=== PATIENT | female | born 1965 | race Two or more races ===

== ENCOUNTER 2016-11-17 12:49 | Emergency (ER) | payer BC ==
[2016-11-17 12:56] VITALS: BP 121/77; BMI 23.0
--- NOTE | 2016-11-17 14:23 | DR.GENAD ---
HPI - PCP Primary Care Physician: [email or web address] - Complaint/Symptoms Chief Complaint:: patient stated she has been battling a cough for over a month and has been short of breath for the past couple of days and her nose is stuffed up. - Source History Provided: Patient - Mode of Arrival Mode of Arrival: Ambulatory - Timing Onset of Chief Complaint: 10/23/16 PMH - PMH Past Medical History: No Past Surgical History: Yes Surgical History: Hysterectomy - Family History History of Family Medical Conditions: No - Social History Does patient currently use any type of tobacco product: No Have you used tobacco products in the last 12 months: No Type of Tobacco Use: None Does any household member use tobacco: Yes Alcohol Use: None Do you use any recreational Drugs:: No Lives With: Family Lives Where: Home - infectious screening In the last 2 months have you had wt loss of >10#?: NO Have you had fever, night sweats or hemotysis?: No Have you traveled outside the country in the last 6 months?: No Isolation: Standard ROS - Review of Systems Constitutional: No Symptoms Reported Eyes: No Symptoms Reported ENTM: No Symptoms Reported Respiratoy: No Symptoms Reported Cardiovascular: No Symptoms Reported Gastrointestinal/Abdominal: No Symptoms Reported Genitourinary: No Symptoms Reported Neurological: No Symptoms Reported Musculoskeletal: No Symptoms Reported Integumentary: No Symptoms Reported Hematologic/Lymphatic: No Symptoms Reported Endocrine: No Symptoms Reported Psychiatric: No Symptoms Reported All Other Systems: Reviewed and Negative PE - Vital Signs Vitals: Temperature 98.3 F Pulse Rate 80 Respiratory Rate 16 Blood Pressure 121/77 O2 Sat by Pulse Oximetry 99 - General General Appearance: Alert, In No Apparent Distress - Head Head Exam: Normal Inspection, Atraumatic - Eyes Eye exam: Normal Appearance, PERRL - ENT ENT Exam: Normal Exam External Ear Exam: Normal External Inspection TM/Canal Exam: Bilateral Normal Nose Exam: Normal Nose Exam Mouth Exam: Normal Inspection Throat Exam: Normal Inspection - Neck Neck Exam: Normal Inspection - Chest Chest Inspection: Normal Inspection, Symmetric Chest Wall Rise - Respiratory Respiratory Exam: Normal Lung Sounds Bilat Respiratory Exam: Bilateral Clear to Auscultation - Cardiovascular Cardiovascular Exam: Regular Rate, Normal Rhythm - Abdominal Exam Abdominal Exam: Normal Inspection Abdominal Tenderness: negative: RUQ, RLQ, LUQ, LLQ, Epigastrium, Suprapubic, Diffuse, Mild, Moderate, Severe, Other - Neurologic Neurological Exam: Alert, Oriented X3, CN II-XII Intact - Skin Skin Exam: Warm, Dry, Intact ROR - Labs Reviewed Result Diagrams: 11/17/16 15:08 11/17/16 15:08 Laboratory: WBC 5.8 X10^3/uL (3.6-10.0) 11/17/16 15:08 RBC 4.98 X10^6/uL (3.5-5.4) 11/17/16 15:08 Hgb 14.3 g/dL (12.0-16.0) 11/17/16 15:08 Hct 41.8 % (36.0-47.0) 11/17/16 15:08 MCV 83.9 fL (80.0-100.0) 11/17/16 15:08 MCH 28.7 pg (27.0-34.0) 11/17/16 15:08 MCHC 34.2 g/dL (33.0-35.0) 11/17/16 15:08 RDW 13.3 % (11.6-16.5) 11/17/16 15:08 Plt Count 275 X10^3/uL (150.0-450.0) 11/17/16 15:08 MPV 7.0 fL (7.4-11.0) L 11/17/16 15:08 Neut % 59.9 % (42.0-75.0) 11/17/16 15:08 Lymph % 30.6 % (21.0-51.0) 11/17/16 15:08 [place] % 7.2 % (0.0-13.0) 11/17/16 15:08 Eos % 1.1 % (0.9-2.9) 11/17/16 15:08 Baso % 1.2 % (0.2-1.0) H 11/17/16 15:08 Neut # 3.5 x10^3/uL (2.2-4.8) 11/17/16 15:08 Lymph # 1.8 X10^3/uL (1.3-2.9) 11/17/16 15:08 [place] # 0.4 x10^3/uL (0.3-0.8) 11/17/16 15:08 Eos # 0.1 x10^3/uL (0.0-0.2) 11/17/16 15:08 Baso # 0.1 X10^3/uL (0.0-0.1) 11/17/16 15:08 Absolute Nucleated RBC 0.0 /100WBC 11/17/16 15:08 Sodium 141 mmol/L (136-145) 11/17/16 15:08 Corrected Sodium TNP 11/17/16 15:08 Potassium 4.0 mmol/L (3.5-5.1) 11/17/16 15:08 Chloride 105 mmol/L (98-107) 11/17/16 15:08 Carbon Dioxide 30.7 mmol/L (21-32) 11/17/16 15:08 BUN 12 mg/dL (7-18) 11/17/16 15:08 Creatinine 0.59 mg/dL (0.55-1.02) 11/17/16 15:08 Est GFR (MDRD) Af Amer > 60 (>60) 11/17/16 15:08 Est GFR (MDRD) Non-Af > 60 (>60) 11/17/16 15:08 Glucose 91 mg/dL (65-99) 11/17/16 15:08 Calcium 9.0 mg/dL (8.5-10.1) 11/17/16 15:08 Corrected Calcium TNP 11/17/16 15:08 Total Bilirubin 1.00 mg/dL (0.2-1.0) 11/17/16 15:08 AST 19 Units/L (15-37) 11/17/16 15:08 ALT 27 Units/L (12-78) 11/17/16 15:08 Alkaline Phosphatase 55 Units/L (46-116) 11/17/16 15:08 C-Reactive Protein 1.70 mg/L (0-3.0) 11/17/16 15:08 Total Protein 8.2 g/dL (6.4-8.2) 11/17/16 15:08 Albumin 3.7 g/dL (3.4-5.0) 11/17/16 15:08 Globulin 4.5 g/dL (2.5-4.5) 11/17/16 15:08 Albumin/Globulin Ratio 0.8 Ratio (1.1-2.1) L 11/17/16 15:08 - XRAY XRAY Interpreted by: Radiologist (Chest : no acute cardiopulmonary disease) - Diagnosis Discharge Problem: Cough variant asthma - Discharge Plan Condition: Stable - Follow ups/Referrals Follow ups/Referrals: DONNA HILLMAN III [Primary Care Provider] - 3 days - Instructions
[2016-11-17 15:23] LABS: BASOPHILS # (AUTO) 0.1 X10^3/uL (0.0-0.1); BASOPHILS % (AUTO) 1.2 % (0.2-1.0); EOSINOPHILS # (AUTO) 0.1 x10^3/uL (0.0-0.2); EOSINOPHILS % (AUTO) 1.1 % (0.9-2.9); HEMATOCRIT 41.8 % (36.0-47.0); HEMOGLOBIN 14.3 g/dL (12.0-16.0); LYMPHOCYTES # (AUTO) 1.8 X10^3/uL (1.3-2.9); LYMPHOCYTES % (AUTO) 30.6 % (21.0-51.0); MEAN CORPUSCULAR HEMOGLOBIN 28.7 pg (27.0-34.0); MEAN CORPUSCULAR HGB CONC 34.2 g/dL (33.0-35.0); MEAN CORPUSCULAR VOLUME 83.9 fL (80.0-100.0); MONOCYTES # (AUTO) 0.4 x10^3/uL (0.3-0.8); MONOCYTES % (AUTO) 7.2 % (0.0-13.0); NEUTROPHILS # (AUTO) 3.5 x10^3/uL (2.2-4.8); NEUTROPHILS % (AUTO) 59.9 % (42.0-75.0); PLATELET COUNT 275 X10^3/uL (150.0-450.0); RED BLOOD COUNT 4.98 X10^6/uL (3.5-5.4); RED CELL DISTRIBUTION WIDTH 13.3 % (11.6-16.5); WHITE BLOOD COUNT 5.8 X10^3/uL (3.6-10.0)
[2016-11-17 15:33] LABS: ALANINE AMINOTRANSFERASE 27 Units/L (12-78); ALBUMIN 3.7 g/dL (3.4-5.0); ALKALINE PHOSPHATASE 55 Units/L (46-116); ASPARTATE AMINO TRANSFERASE 19 Units/L (15-37); BLOOD UREA NITROGEN 12 mg/dL (7-18); CARBON DIOXIDE 30.7 mmol/L (21-32); CHLORIDE 105 mmol/L (98-107); CREATININE 0.59 mg/dL (0.55-1.02); GLUCOSE 91 mg/dL (65-99); SODIUM 141 mmol/L (136-145); TOTAL PROTEIN 8.2 g/dL (6.4-8.2); eGFR BLACK RACES > 60 (>60); eGFR NON BLACK RACES > 60 (>60)
--- NOTE | 2016-11-17 15:42 | RAD ---
HISTORY: Cough Study: Two view chest Comparison: None Findings: The lungs are clear without consolidation, effusion or pneumothorax. The cardiac and mediastinal co ntours are within normal limits. The soft tissues are unremarkable. IMPRESSION: 1. No acute cardiopulmonary abnormality. Reported By:
== END 2016-11-17 16:16 | disposition home or self-care (01) ==
LOC: ER 12:49
DX: J45.991 Cough variant asthma (principal)
CPT/HCPCS: 36415; 71020; 80053; 85025; 86140; 99282

== ENCOUNTER 2017-03-01 09:43 | Emergency (ER) | payer BC ==
[2017-03-01 09:47] VITALS: BP 137/81; BMI 23.8
--- NOTE | 2017-03-01 10:14 | DR.GENAD ---
HPI - PCP Primary Care Physician: [email or web address] - Complaint/Symptoms Chief Complaint Doctors Comments: Patient states that on last night when she turned her head to one side suddenly she became dizzy. She also complaines of weakness of two days duration. Chief Complaint:: patient stated she started getting dizzy last night. - Source History Provided: Patient - Mode of Arrival Mode of Arrival: Ambulatory - Timing Onset of Chief Complaint: 02/28/17 PMH - PMH Past Medical History: Yes Past Medical History: Dyslipidemia Past Surgical History: Yes Surgical History: Hysterectomy - Family History History of Family Medical Conditions: No - Social History Does patient currently use any type of tobacco product: No Have you used tobacco products in the last 12 months: No Type of Tobacco Use: None Does any household member use tobacco: Yes Alcohol Use: None Do you use any recreational Drugs:: No Lives With: Family Lives Where: Home - infectious screening In the last 2 months have you had wt loss of >10#?: NO Have you had fever, night sweats or hemotysis?: No Have you traveled outside the country in the last 6 months?: No Isolation: Standard ROS - Review of Systems Constitutional: Weakness Eyes: No Symptoms Reported ENTM: No Symptoms Reported Respiratoy: No Symptoms Reported Cardiovascular: No Symptoms Reported Gastrointestinal/Abdominal: No Symptoms Reported Genitourinary: No Symptoms Reported Neurological: No Symptoms Reported Musculoskeletal: No Symptoms Reported Integumentary: No Symptoms Reported Hematologic/Lymphatic: No Symptoms Reported Endocrine: No Symptoms Reported Psychiatric: No Symptoms Reported All Other Systems: Reviewed and Negative PE - Vital Signs Vitals: Temperature 97.8 F Pulse Rate 64 Respiratory Rate 16 Blood Pressure 137/81 O2 Sat by Pulse Oximetry 100 - General Limitations: No Limitations General Appearance: Alert, In No Apparent Distress - Head Head Exam: Normal Inspection, Atraumatic - Eyes Eye exam: Normal Appearance, PERRL, EOMI - ENT ENT Exam: Normal Exam External Ear Exam: Normal External Inspection TM/Canal Exam: Bilateral Normal Nose Exam: Normal Nose Exam Mouth Exam: Normal Inspection Throat Exam: Normal Inspection - Neck Neck Exam: Normal Inspection, Full ROM - Chest Chest Inspection: Normal Inspection - Respiratory Respiratory Exam: Normal Lung Sounds Bilat Respiratory Exam: Bilateral Clear to Auscultation - Cardiovascular Cardiovascular Exam: Regular Rate, Normal Rhythm - Abdominal Exam Abdominal Exam: Normal Inspection, Normal Bowel Sounds Abdominal Tenderness: negative: RUQ, RLQ, LUQ, LLQ, Epigastrium, Suprapubic, Diffuse, Mild, Moderate, Severe, Other - Extremities Extremities Exam: Normal Inspection, Full ROM - Back Back Exam: Normal Inspection - Neurologic Neurological Exam: Alert, Oriented X3, CN II-XII Intact - Psychiatric Psychiatric Exam: Normal Affect - Skin Skin Exam: Warm, Dry, Intact ROR - Labs Reviewed Result Diagrams: 03/01/17 10:18 03/01/17 10:18 Laboratory: WBC 5.3 X10^3/uL (3.6-10.0) 03/01/17 10:18 RBC 4.63 X10^6/uL (3.5-5.4) 03/01/17 10:18 Hgb 13.7 g/dL (12.0-16.0) 03/01/17 10:18 Hct 39.6 % (36.0-47.0) 03/01/17 10:18 MCV 85.5 fL (80.0-100.0) 03/01/17 10:18 MCH 29.7 pg (27.0-34.0) 03/01/17 10:18 MCHC 34.7 g/dL (33.0-35.0) 03/01/17 10:18 RDW 14.1 % (11.6-16.5) 03/01/17 10:18 Plt Count 282 X10^3/uL (150.0-450.0) 03/01/17 10:18 MPV 7.3 fL (7.4-11.0) L 03/01/17 10:18 Neut % 60.0 % (42.0-75.0) 03/01/17 10:18 Lymph % 31.2 % (21.0-51.0) 03/01/17 10:18 [place] % 6.4 % (0.0-13.0) 03/01/17 10:18 Eos % 1.3 % (0.9-2.9) 03/01/17 10:18 Baso % 1.1 % (0.2-1.0) H 03/01/17 10:18 Neut # 3.2 x10^3/uL (2.2-4.8) 03/01/17 10:18 Lymph # 1.7 X10^3/uL (1.3-2.9) 03/01/17 10:18 [place] # 0.3 x10^3/uL (0.3-0.8) 03/01/17 10:18 Eos # 0.1 x10^3/uL (0.0-0.2) 03/01/17 10:18 Baso # 0.1 X10^3/uL (0.0-0.1) 03/01/17 10:18 Absolute Nucleated RBC 0.0 /100WBC 03/01/17 10:18 Sodium 138 mmol/L (136-145) 03/01/17 10:18 Corrected Sodium 139 mmol/L (136-145) 03/01/17 10:18 Potassium 3.5 mmol/L (3.5-5.1) 03/01/17 10:18 Chloride 103 mmol/L (98-107) 03/01/17 10:18 Carbon Dioxide 29.1 mmol/L (21-32) 03/01/17 10:18 BUN 11 mg/dL (7-18) 03/01/17 10:18 Creatinine 0.61 mg/dL (0.55-1.02) 03/01/17 10:18 Est GFR (MDRD) Af Amer > 60 (>60) 03/01/17 10:18 Est GFR (MDRD) Non-Af > 60 (>60) 03/01/17 10:18 Glucose 127 mg/dL (65-99) H 03/01/17 10:18 Calcium 8.2 mg/dL (8.5-10.1) L 03/01/17 10:18 Corrected Calcium TNP 03/01/17 10:18 Total Bilirubin 1.50 mg/dL (0.2-1.0) H 03/01/17 10:18 AST 15 Units/L (15-37) 03/01/17 10:18 ALT 27 Units/L (12-78) 03/01/17 10:18 Alkaline Phosphatase 45 Units/L (46-116) L 03/01/17 10:18 Creatine Kinase 56 Units/L (26-192) 03/01/17 10:18 CK-MB (CK-2) < 1.0 ng/mL (0-4.0) 03/01/17 10:18 CK/CKMB % Calc 1.8 % (<4) 03/01/17 10:18 Troponin I < 0.02 ng/mL (0-1.5) 03/01/17 10:18 C-Reactive Protein 1.90 mg/L (0-3.0) 03/01/17 10:18 Total Protein 7.6 g/dL (6.4-8.2) 03/01/17 10:18 Albumin 3.6 g/dL (3.4-5.0) 03/01/17 10:18 Globulin 4.0 g/dL (2.5-4.5) 03/01/17 10:18 Albumin/Globulin Ratio 0.9 Ratio (1.1-2.1) L 03/01/17 10:18 Specimen Type Clean catch urine 03/01/17 10:14 Urine Color Pale yellow (YELLOW) 03/01/17 10:14 Urine Appearance Clear (CLEAR) 03/01/17 10:14 Urine pH 7.0 (5.0 - 8.0) 03/01/17 10:14 Ur Specific [place] 1.010 (1.000-1.030) 03/01/17 10:14 Urine Protein Negative (NEGATIVE) 03/01/17 10:14 Urine Glucose (UA) Negative (NEGATIVE) 03/01/17 10:14 Urine Ketones Negative (NEGATIVE) 03/01/17 10:14 Urine Occult Blood 2+ (NEGATIVE) 03/01/17 10:14 Urine Nitrite Negative (NEGATIVE) 03/01/17 10:14 Urine Bilirubin Negative (NEGATIVE) 03/01/17 10:14 Urine Urobilinogen Normal (NORMAL) 03/01/17 10:14 Ur Leukocyte Esterase Negative (NEGATIVE) 03/01/17 10:14 Urine RBC Rare /HPF (NEGATIVE) 03/01/17 10:14 Urine WBC None seen /HPF (NEGATIVE) 03/01/17 10:14 Ur Squamous Epith Cells Rare /HPF (NEGATIVE) 03/01/17 10:14 Urine Bacteria Negative /HPF (NEGATIVE) 03/01/17 10:14 Ur Culture Indicated? No/not indicated 03/01/17 10:14 - EKG [place]: Normal Rhythm: NSR, SB (56) Block: None Hypertrophy: None ST: Normal - Diagnosis Discharge Problem: Vertigo, Bradycardia - Discharge Plan Condition: Stable - Follow ups/Referrals Follow ups/Referrals: DONNA HILLMAN III [Primary Care Provider] - 3 days - Instructions
[2017-03-01 10:38] LABS: BILIRUBIN,URINE NEGATIVE (NEGATIVE); BLOOD/HEMOGLOBIN,URINE 2+ (NEGATIVE); GLUCOSE, URINE NEGATIVE (NEGATIVE); KETONES,URINE NEGATIVE (NEGATIVE); LEUKOCYTE ESTERASE ,URINE NEGATIVE (NEGATIVE); NITRITES,URINE NEGATIVE (NEGATIVE); PROTEIN,URINE NEGATIVE (NEGATIVE); UROBILINOGEN,URINE NORMAL (NORMAL)
[2017-03-01 10:40] LABS: BASOPHILS # (AUTO) 0.1 X10^3/uL (0.0-0.1); BASOPHILS % (AUTO) 1.1 % (0.2-1.0); EOSINOPHILS # (AUTO) 0.1 x10^3/uL (0.0-0.2); EOSINOPHILS % (AUTO) 1.3 % (0.9-2.9); HEMATOCRIT 39.6 % (36.0-47.0); HEMOGLOBIN 13.7 g/dL (12.0-16.0); LYMPHOCYTES # (AUTO) 1.7 X10^3/uL (1.3-2.9); LYMPHOCYTES % (AUTO) 31.2 % (21.0-51.0); MEAN CORPUSCULAR HEMOGLOBIN 29.7 pg (27.0-34.0); MEAN CORPUSCULAR HGB CONC 34.7 g/dL (33.0-35.0); MEAN CORPUSCULAR VOLUME 85.5 fL (80.0-100.0); MEAN PLATELET VOLUME 7.3 fL (7.4-11.0); MONOCYTES # (AUTO) 0.3 x10^3/uL (0.3-0.8); MONOCYTES % (AUTO) 6.4 % (0.0-13.0); NEUTROPHILS # (AUTO) 3.2 x10^3/uL (2.2-4.8); PLATELET COUNT 282 X10^3/uL (150.0-450.0); RED BLOOD COUNT 4.63 X10^6/uL (3.5-5.4); RED CELL DISTRIBUTION WIDTH 14.1 % (11.6-16.5); WHITE BLOOD COUNT 5.3 X10^3/uL (3.6-10.0)
[2017-03-01 10:48] LABS: APPEARANCE,URINE CLEAR (CLEAR); COLOR,URINE PALE YELLOW (YELLOW)
[2017-03-01 10:49] LABS: BACTERIA,URINE NEGATIVE /HPF (NEGATIVE); RBC,URINE RARE /HPF (NEGATIVE); SQUAMOUS EPITHELIAL CELL,UR RARE /HPF (NEGATIVE)
[2017-03-01 10:51] LABS: BLOOD UREA NITROGEN 11 mg/dL (7-18); CALCIUM 8.2 mg/dL (8.5-10.1); CARBON DIOXIDE 29.1 mmol/L (21-32); CHLORIDE 103 mmol/L (98-107); COR NA(FOR HYPERGLY) 139 mmol/L (136-145); CREATININE 0.61 mg/dL (0.55-1.02); GLUCOSE 127 mg/dL (65-99); SODIUM 138 mmol/L (136-145); TROPONIN I < 0.02 ng/mL (0-1.5); eGFR BLACK RACES > 60 (>60); eGFR NON BLACK RACES > 60 (>60)
[2017-03-01 10:56] LABS: ALANINE AMINOTRANSFERASE 27 Units/L (12-78); ALBUMIN 3.6 g/dL (3.4-5.0); ALKALINE PHOSPHATASE 45 Units/L (46-116); ASPARTATE AMINO TRANSFERASE 15 Units/L (15-37); CKMB % 1.8 % (<4); CREATINE KINASE 56 Units/L (26-192); CREATINE KINASE MB < 1.0 ng/mL (0-4.0); TOTAL PROTEIN 7.6 g/dL (6.4-8.2)
[2017-03-01] MEDS ORDERED: ANTIVERT TAB 25 MG PO ONE ×2 (11:16→11:18)
[2017-03-01] MEDS ORDERED: ANTIVERT TAB 25 MG ONE (11:17)
== END 2017-03-01 11:34 | disposition home or self-care (01) ==
LOC: ER 09:55
DX: R00.1 Bradycardia, unspecified (principal); R42 Dizziness and giddiness
CPT/HCPCS: 36415; 80053; 81001; 82550; 82553; 84484; 85025; 86140; 93005; 93010; 99282; 99283